=== PATIENT | female | born 1965 | race Caucasian/White ===

== ENCOUNTER → 2019-02-12 08:51 | Outpatient (CLI) | payer OTHER, MEDICAID, SELFPAY ==
[2019-02-12 09:18] LABS: Add Manual Diff / Slide Review NO; Basophils Absolute Auto 0 /uL (0-100); Basophils Percent Auto 0.4 % (0-2); Eosinophils Absolute Auto 200 /uL (0-450); Eosinophils Percent Auto 2.6 % (2-4); Hematocrit 40.1 % (36-46); Hemoglobin 13.4 g/dL (12.0-16.0); Lymphocytes Absolute Auto 2000 /uL (1100-4500); Lymphocytes Percent Auto 33.5 % (25-40); Mean Corpuscular HGB Conc 33.5 % (30-36); Mean Corpuscular Volume 86.6 fL (80-100); Monocytes Absolute Auto 400 /uL (0-900); Monocytes Percent Auto 6.8 % (3-14); Neutrophils Absolute Auto 3300 /uL (1500-7000); Neutrophils Percent Auto 56.7 % (50-75); Platelet Count 272 X10^3/uL (150-400); Red Blood Cell Count 4.63 X10^6/uL (4.0-5.2); White Blood Cell Count 5.9 X10^3/uL (4.5-11.0)
[2019-02-12 09:44] LABS: Alanine Aminotransferase 19 IU/L (9-52); Albumin 4.3 g/dL (3.5-5.0); Albumin Globulin Ratio 1.3 (1.0-2.8); Alkaline Phosphatase 60 U/L (38-126); Aspartate Aminotransferase 23 IU/L (14-36); Bilirubin Total 0.3 mg/dL (0.2-1.3); Blood Urea Nitrogen 18 mg/dL (7-17); Calcium 9.4 mg/dL (8.4-10.2); Carbon Dioxide 25 mmol/L (22-32); Chloride 104 mmol/L (98-107); Cholesterol 244 mg/dL (140-199); Estimated Glomerular Filt Rate 58.2 mL/min (>60); Globulin 3.2 g/dL (1.7-4.1); Glucose 93 mg/dL (70-100); HDL Cholesterol 53 mg/dL (40-60); HEMOLYSIS < 15 (0-50); LDL Cholesterol Calculated 156 mg/dL (<100); Potassium 3.8 mmol/L (3.4-5.1); Sodium 139 mmol/L (137-145); Total Protein 7.5 g/dL (6.3-8.2); Triglycerides 176 mg/dL (35-150)
== END ==
PROVIDERS: PCP Family Medicine; Visit Provider Family Medicine
DX: Z13.1 Encounter for screening for diabetes mellitus (principal); Z00.00 Encounter for general adult medical examination without abnormal findings; Z13.220 Encounter for screening for lipoid disorders
CPT/HCPCS: 36415; 80053; 80061; 85025

== ENCOUNTER → 2019-03-14 09:42 | Outpatient (CLI) | payer OTHER, MEDICAID, SELFPAY ==
[2019-03-16 14:48] LABS: Fecal Immunochemical Test NOT DETECTED (NOT DETECTED)
== END ==
PROVIDERS: PCP Family Medicine; Visit Provider Family Medicine
DX: Z12.11 Encounter for screening for malignant neoplasm of colon (principal)
CPT/HCPCS: 82274

== ENCOUNTER → 2019-05-08 12:30 | Outpatient (CLI) | payer OTHER, MEDICAID, SELFPAY ==
--- NOTE | 2019-05-08 12:33 | DI.RAD.S_ITS ---
PROCEDURE: XR ANKLE RT MIN 3V INDICATIONS: crush injury TECHNIQUE: 3 views of the ankle were acquired. COMPARISON: None. FINDINGS: Bones: No fractures or dislocations. Ankle mortise is normally aligned. No suspicious bony lesions. Chronic appearing ossicle with cortication projects adjacent to lateral malleolus. Plantar and posterior calcaneal spurs. Soft tissues: No tibiotalar joint effusion. Achilles tendon appears normal. IMPRESSION: No acute fracture identified. Chronic appearing ossicle projects adjacent to lateral malleolus probably from remote trauma. If the patient's pain or other symptoms persist, consider further evaluation with MRI Dictated by: Micha Simon M.D. on 05/08/2019 at 16:49 Approved by: Micha Simon M.D. on 05/08/2019 at 16:52
== END ==
PROVIDERS: Family Provider Family Medicine; PCP Family Medicine; Visit Provider Hospitalist
DX: S97.01XA Crushing injury of right ankle, initial encounter (principal); X58.XXXA Exposure to other specified factors, initial encounter
CPT/HCPCS: 73610

== ENCOUNTER → 2021-09-16 09:46 | Outpatient (CLI) | payer OTHER, MEDICAID, SELFPAY ==
[2021-09-16 12:14] LABS: Alanine Aminotransferase 11 IU/L (<35); Albumin 4.1 g/dL (3.5-5.0); Albumin Globulin Ratio 1.4 (1.0-2.8); Alkaline Phosphatase 99 U/L (38-126); Aspartate Aminotransferase 24 IU/L (14-36); Bilirubin Total 0.4 mg/dL (0.2-1.3); Blood Urea Nitrogen 24 mg/dL (7-17); Calcium 9.7 mg/dL (8.4-10.2); Carbon Dioxide 23 mmol/L (22-32); Chloride 106 mmol/L (98-107); Estimated Glomerular Filt Rate 57.8 mL/min (>60); Glucose 95 mg/dL (70-100); HDL Cholesterol 56 mg/dL (40-60); HEMOLYSIS < 15 (0-50); Potassium 4.5 mmol/L (3.4-5.1); Sodium 140 mmol/L (137-145); Total Protein 7.1 g/dL (6.3-8.2); Triglycerides 365 mg/dL (35-150)
[2021-09-16 12:27] LABS: Cholesterol 379 mg/dL (140-199); LDL Cholesterol Calculated 250 mg/dL (<100)
== END ==
PROVIDERS: Family Provider Family Medicine; PCP Family Medicine; Referring Provider Family Medicine; Visit Provider Family Medicine
DX: E66.9 Obesity, unspecified (principal); Z13.220 Encounter for screening for lipoid disorders
CPT/HCPCS: 36415; 80053; 80061

== ENCOUNTER 2022-04-16 09:13 | Observation (INO) | payer OTHER, MEDICAID, SELFPAY ==
[2022-04-16] VITALS (8 sets, daily range): BP systolic 103–136; BP diastolic 60–80; PULSE 67–92; RESP 15–18; TEMP 36.1–37.1; O2SAT 93–99; BMI 25.8
--- NOTE | 2022-04-16 10:20 | ED_ITS ---
HPI - Extremity Injury (Lower) General Chief Complaint: Extremity Injury, Lower Stated Complaint: something stuck in big toe, lt foot Time Seen by Provider: 04/16/22 10:13 Source: patient Mode of arrival: Ambulatory Limitations: no limitations History of Present Illness HPI Narrative: This is a 56-year-old female who states that she stubbed her big toe several days ago. She states was in the carpet but felt very solid. She is unsure what it was. She felt something sort of being or hit the wall. She states there was small puncture and there was bleeding initially. She has had swelling of the toe itself, maybe some mild redness, no numbness or tingling. Painful over the pad of the toe. No ecchymosis. She denies any swelling in the rest of her foot. It is painful to weightbear. She is on medication for cholesterol, denies any other daily medications. No known drug allergies. No regular tobacco, occasional vape. Patient tetanus updated at 2019. Related Data Previous Rx's Medication Instructions Recorded fluticasone propionate 50 1 spray NASAL BID #15.8 ml 07/07/20 mcg/actuation nasal spray,suspension (Flonase Allergy Relief) atorvastatin 20 mg tablet See Rx Instructions .ROUTE 01/25/22 .COMPLEX #30 tab bupropion HCl 150 mg tablet,12 hr 150 mg PO Q12H #60 ea 02/09/22 sustained-release Allergies Allergy/AdvReac Type Severity Reaction Status Date / Time No Known Allergies Allergy Uncoded 08/20/21 09:09 Review of Systems Review of Systems ROS Unobtainable: All systems reviewed & are unremarkable except as noted in HPI and below Patient History Medical History Depression Milk allergy Obesity (BMI 30-39.9) Spontaneous vaginal delivery Surgical History H/O wisdom tooth extraction Family History Father Cancer Social History marital status: number of children: 1 occupational status: employed ([employer] business) Smoking Status: Current some day smoker alcohol intake: current (rarely, once a month ) substance use type: marijuana Smoking Status: Current some day smoker alcohol intake frequency: holidays/special occasions only Substance Use Type: marijuana Exam Narrative Exam Narrative: GENERAL: Alert and oriented x three, female in mild distress. HEENT: Head normocephalic, atraumatic, EOMI, pupils reactive, face symmetric, moist mucous membranes NECK: Supple, full range of motion EXTREMITIES: Normal range of motion, no clubbing. Patient is edema of the great toe, there is a small superficial puncture over the distal pad of the toe, there is no ecchymosis, and unable to palpate any foreign body, there is some swelling throughout the toe itself, very minimal redness in comparison to the other foot, nail is intact with no subungual hematoma, no bony tenderness appreciated on exam. NEUROLOGICAL: Cranial nerves II through XII grossly intact. Moving all extremities SKIN: Warm, dry, no petechiae, no rashes or lesions. Initial Vital Signs Initial Vital Signs: Vital Signs Temperature 97 F L 04/16/22 09:36 Pulse Rate 92 H 04/16/22 09:36 Respiratory Rate 16 04/16/22 09:36 Blood Pressure 136/80 04/16/22 09:36 Pulse Oximetry 99 04/16/22 09:36 Course Orders Ordered: ED Orders 04/16/22 10:24 XR toe LT min 2V Stat 04/16/22 11:25 COVID19 -Nasal RAPID/Pre-Proc Stat Reevaluation(s) Reevaluation #1: Patient x-ray was reviewed. Bedside ultrasound I am able to have likely visualize the object but is quite deep and not easily palpable. Discussed with patient we can try to call her open and remove it it does need to be removed but may be more beneficial with Orthopedic surgery. Time: 11:08 Consultations Consultation #1: Philip Marie, images evaluated. Able to visualize ultrasound but somewhat difficult not palpable on exam. He feels patient would likely benefit from going to OR. Unclear if there is any availability today may be Tuesday. Dr. De Luna called back. Plan for OR today at 1600, NPO. Time: 11:08 Vital Signs Vital signs: Vital Signs - 8 hr 04/16/22 09:36 Temperature 97 F L Pulse Rate 92 H Respiratory Rate 16 Blood Pressure 136/80 Pulse Oximetry 99 MDM - Extremity Injury (Lower) Lab Data Labs: Lab Results 04/16/22 Range/Units 11:25 SARS-CoV-2 (PCR) Negative (Negative) Imaging Data Extremity x-ray #1: Radiologist's Impression: [address] [address] XRay Report Signed Patient: Pamella Godfrey MR#: [id number] : 1965 Acct:[id number] Age/Sex: 56 / F Date of Service: 04/16/22 Loc: ED Accession Number: [id number] ?? Procedure: XR toe LT min 2V Ordering Provider: Emmanuelle Rogers D.O. PROCEDURE:? XR TOE LT MIN 2V ? INDICATIONS:? stubbed toe, small puncture, swelling several days ago ? TECHNIQUE:? 3 views of the 1st toe(s) acquired.? ? COMPARISON:? None. ? FINDINGS:? ? Bones:? No fractures or dislocations.? No suspicious bony lesions.? ? Soft tissues:? There is a 1 6 radiodensity overlying the distal 1st phalanx.? Soft tissue edema is ? IMPRESSION:? Radiodensity overlying distal 1st phalanx most consistent with foreign body. No visualized acute fracture or dislocation. However, if clinical concern and/or pain persist, short interval imaging followup in 7-10 days is recommended, as occult injury cannot be definitively excluded. ? ? Dictated by: Veronica Rivera M.D. on 04/16/2022 at 10:37 ? ? Approved by: Veronica Rivera M.D. on 04/16/2022 at 10:38?? [facility] Narrative Medical decision making narrative: This is a 56-year-old female who had an injury to her toe. She has a small p uncture wound, no significant cellulitis but some very mild erythema no palpable foreign body on exam at the area of injury. Patient does have some swelling. X-ray was obtained to rule out fracture or metallic foreign body. The patient appears to have a metallic foreign body in her foot. Patient's tetanus is up-to-date as of 2019. I am unable to palpate it. With visualization with ultrasound it appears quite deep in the pad of the toe discussed with Orthopedic surgery we do not have a portable C-arm available in the emergency department so asked to keep people NPO, COVID swab performed IV placed for OR today for removal of foreign body by Dr. De Luna. Discharge Plan Departure Patient Disposition: Admitted to Surgery Clinical Impression: Puncture wound of toe, Foreign body of toe Instructions: DI for Puncture Wound Prescriptions: No Action fluticasone propionate [Flonase Allergy Relief] 50 mcg/actuation spray,suspension 1 spray NASAL BID Qty: 15.8 2RF Rx Instructions: Due for appointment atorvastatin 20 mg tablet See Rx Instructions .ROUTE .COMPLEX Qty: 30 7RF Dose Instruction: Take one tablet by mouth daily. Rx Instructions: Take one tablet by mouth daily. bupropion HCl 150 mg tablet sustained-release 12 hr 150 mg PO Q12H Qty: 60 3RF Referrals: Tosin Carreon DO [Primary Care Provider] -
--- NOTE | 2022-04-16 10:24 | DI.RAD.S_ITS ---
PROCEDURE: XR TOE LT MIN 2V INDICATIONS: stubbed toe, small puncture, swelling several days ago TECHNIQUE: 3 views of the 1st toe(s) acquired. COMPARISON: None. FINDINGS: Bones: No fractures or dislocations. No suspicious bony lesions. Soft tissues: There is a 1 6 radiodensity overlying the distal 1st phalanx. Soft tissue edema is IMPRESSION: Radiodensity overlying distal 1st phalanx most consistent with foreign body. No visualized acute fracture or dislocation. However, if clinical concern and/or pain persist, short interval imaging followup in 7-10 days is recommended, as occult injury cannot be definitively excluded. Dictated by: Veronica Rivera M.D. on 04/16/2022 at 10:37 Approved by: Veronica Rivera M.D. on 04/16/2022 at 10:38
--- NOTE | 2022-04-16 11:10 | PC.NURSE ---
Provider Dr. Rogers asked me to get a hold of the provider dairy nutritionist for orthopedics at 11:08. I called Dr. Philip De Luna MD at 11:10 and connected him with Dr. Rogers.
--- NOTE | 2022-04-16 11:47 | PM.HP.1 ---
History of Present Illness History of Present Illness Date Patient Seen: 04/16/22 Time Patient Seen: 17:00 Date of Onset of Symptoms: 04/14/22 Chief complaint: something stuck in big toe, lt foot Narrative: Ms. Godfrey is a 56 yo F with 2 days history of feeling something in her left big toe. She states she thinks she was poked with a sewing needle. X-ray shows a foreigh body in the shape of a needle in her left big toe's soft tissue. The needle cannot be palpated on the skin. After discussing risks and benefits of treatment options, patient elected to proceed with surgical removal of her foreign body in her toe in the OR. Patient History Medical History Depression Milk allergy Obesity (BMI 30-39.9) Spontaneous vaginal delivery Surgical History H/O wisdom tooth extraction Family & Social History Family History Father Cancer Safety & Behavioral: Feels Safe in Current Yes Environment Been Physically Hurt or No Threatened By a Person Tobacco & Substance use: Smoking Status Current some day smoker alcohol intake current alcohol intake frequency holiday/special occasion Substance Use Type marijuana Meds Home Medications and Allergies Home Medications Medication Instructions Recorded Confirmed Type fluticasone propionate 50 1 spray NASAL BID #15.8 ml 07/07/20 04/16/22 Rx mcg/actuation nasal spray,suspension (Flonase Allergy Relief) atorvastatin 20 mg tablet See Rx Instructions .ROUTE 01/25/22 04/16/22 Rx .COMPLEX #30 tab bupropion HCl 150 mg tablet,12 hr 150 mg PO Q12H #60 ea 02/09/22 04/16/22 Rx sustained-release Allergies Allergy/AdvReac Type Severity Reaction Status Date / Time No Known Allergies Allergy Uncoded 08/20/21 09:09 Exam Vital Signs (past 8 hours): - 04/16/22 09:36 Temperature 97 F L Pulse Rate 92 H Respiratory Rate 16 Blood Pressure 136/80 Pulse Oximetry 99 Oxygen Delivery Method Room Air Extrem Other: Small puncture wound on the front plantar aspect of left big toe, no erythema, no drainage. No palpable foreign body. Assessment & Plan Assessment & Plan narrative: 56 yo F with sewing needle stuck in her left big toes soft tissue. The needle is deeply embedded and cannot be palpated and easily retrived in the ED. Informed consent was obtain and patient is taken to the ER for emergent surgical removal of her foreign body in her left big toe. Time Spent With Patient Critical Care time: I spent a total of [] minutes of critical care time on this patient's care today; this time is exclusive of procedural time.
[2022-04-16 11:52] LABS: COVID19 -Nasal RAPID Negative (Negative)
[2022-04-16] MEDS: LACTATED RINGERS 1,000 ML 42 ML IV (16:15)
--- NOTE | 2022-04-16 16:38 | P.OP_ITS ---
Operative Date/Time/Diagnoses Date of procedure: 04/16/22 Time of procedure: 17:00 Pre-op diagnosis: 1. left big toe penetrating wound with retained hardware Post-op diagnosis: same Procedure & Clinicians Procedure: 1. Left big toe foreign body removal through open incision 2. Irrigation and debridement of skin and subcutaneous tissue Same procedure as scheduled: Yes Indications: Ms. Iniguez is a 56 yo F with stepped on a sharp object 4 days ago and has been walking around with pain. She presented to ED today for persisting pain. X-ray shows a needle shaped foreign body inside of her left big toe in soft tissue. After determining difficulty for attempt removal in ED, orthopedic service was consulted. Informed consent was obtained for emergent surgical removal of foreign body through open incision. Surgeon: Philip De Luna Electrical Test Engineer: Wilda Melissa Click Yes if Unassisted: No Anesthesia Type: General Operative Notes Closure Type: primary Specimen(s): none sent Applied: catheter Estimated Blood Loss (mL): 0 Blood products transfused: none Procedure in detail: After informed consent was obtained, patient was taken to the operating room. Time out was performed. Patient's left foot was then prepped and draped in a sterile fashion. 0.25% Marcaine was used to perform digital block to patient's left toe. IV sedation was also administered. The open wound on patient's left big toe was extended using a 11 blade scalpel. Under C-arm guidance a fine tip mosquito hemostat was used to grasp the tip of the foreign body and retrieving the foreign body through the entry wound. After the foreign body was successfully removed, the wound was irrigated with sterile normal saline. 4-0 nylon suture was used to close the extended incision on the left toe. A Band-Aid was then placed over the left big toe. Patient will be discharged home and allowed to weightbear as tolerated to her left foot. Complications: none Post-operative Condition: stable Disposition: PACU Plan for aftercare: Discharge to home
[2022-04-16] MEDS: BUPIVACAINE 0.25% (PF) VIAL 30 ML INJ (17:06)
--- NOTE | 2022-04-16 17:10 | SUR.OPER ---
Supine on padded stretcher, head on pillow, arms secured on padded and tucked at sides, legs uncrossed, safety belt at thigh, tape over blanket over lower legs.
== END 2022-04-16 18:13 | disposition home or self-care (01) ==
LOC: ED 14:28 → AC 16:07
PROVIDERS: Admitting Provider Orthopaedic Surgery Orthopaedic Surgery of the Spine; Emergency Provider Emergency Medicine; Family Provider Family Medicine; PCP Family Medicine; Referring Provider Emergency Medicine; Visit Provider Orthopaedic Surgery Orthopaedic Surgery of the Spine
PROC: (CPT 28192; principal; 2022-04-16 16:45)
DX: S91.142A Puncture wound with foreign body of left great toe without damage to nail, initial encounter (principal); F17.210 Nicotine dependence, cigarettes, uncomplicated; W22.8XXA Striking against or struck by other objects, initial encounter; Z20.822 Contact with and (suspected) exposure to COVID-19
CPT/HCPCS: 28192; 36415; 73660; 87635; 99283; C9803; G0378; J2405; J2704; J3010

== ENCOUNTER → 2022-06-08 16:08 | Outpatient (CLI) | payer OTHER, MEDICAID, SELFPAY ==
--- NOTE | 2022-06-08 16:12 | DI.MG.S_ITS ---
BILATERAL DIGITAL SCREENING MAMMOGRAM 3D/2D WITH CAD: 06/08/2022 CLINICAL: Routine screening. Baseline exam Family history of breast cancer. No prior exams were available for comparison. The tissue of both breasts is heterogeneously dense. This may lower the sensitivity of mammography. Current study was also evaluated with a Computer Aided Detection (CAD) system. No significant masses, calcifications, or other findings are seen in either breast. IMPRESSION: NEGATIVE There is no mammographic evidence of malignancy. A 1 year screening mammogram is recommended. Based on the Tyrer Cuzick model (a risk assessment model) the patient's lifetime risk is 11.8% and her 10 year risk is 3.6%. According to the ACR, ACS, and NCCN guidelines, an annual breast MRI exam along with mammogram is recommended if the patient's lifetime risk is 20% or greater. This exam was interpreted at Station ID: [id number]. NOTE: For mammograms, a report in lay terms will be sent to the patient. Approximately 15% of breast malignancies will not be visualized mammographically. In the management of a palpable breast mass, a negative mammogram must not discourage biopsy of a clinically suspicious lesion. Electronically Signed By: Rodrigo rubio/andree:06/09/2022 14:37:44 letter sent: Normal Exam ACR BI-RADS Category 1: Negative [id number]
== END ==
PROVIDERS: Family Provider Family Medicine; PCP Family Medicine; Referring Provider Family Medicine; Visit Provider Family Medicine
DX: Z12.31 Encounter for screening mammogram for malignant neoplasm of breast (principal); Z80.3 Family history of malignant neoplasm of breast
CPT/HCPCS: 77063; 77067

== ENCOUNTER → 2022-06-17 11:55 | Outpatient (CLI) | payer OTHER, MEDICAID, SELFPAY ==
[2022-06-17 13:44] LABS: Alanine Aminotransferase 11 IU/L (<35); Albumin 4.2 g/dL (3.5-5.0); Albumin Globulin Ratio 1.5 (1.0-2.8); Alkaline Phosphatase 72 U/L (38-126); Aspartate Aminotransferase 27 IU/L (14-36); BUN Creatinine Ratio 15.9 (6-22); Bilirubin Total 0.6 mg/dL (0.2-1.3); Blood Urea Nitrogen 17 mg/dL (7-17); Calcium 9.1 mg/dL (8.4-10.2); Carbon Dioxide 24 mmol/L (22-32); Chloride 106 mmol/L (98-107); Cholesterol 165 mg/dL (140-199); Estimated Glomerular Filt Rate > 60 mL/min (>60); Globulin 2.8 g/dL (1.7-4.1); Glucose 92 mg/dL (70-100); HDL Cholesterol 65 mg/dL (40-60); HEMOLYSIS < 15 (0-50); LDL Cholesterol Calculated 81 mg/dL (<100); Potassium 3.7 mmol/L (3.4-5.1); Sodium 138 mmol/L (137-145); Triglycerides 93 mg/dL (35-150)
== END ==
PROVIDERS: Family Provider Family Medicine; PCP Family Medicine; Referring Provider Family Medicine; Visit Provider Family Medicine
DX: E66.9 Obesity, unspecified (principal); E78.5 Hyperlipidemia, unspecified
CPT/HCPCS: 36415; 80053; 80061

== ENCOUNTER 2023-08-11 13:49 | Emergency (ER) | payer OTHER, MEDICAID, SELFPAY ==
[2023-08-11 13:55] VITALS: BP 147/94; PULSE 99; RESP 18; TEMP 37.2; O2SAT 97
--- NOTE | 2023-08-11 13:59 | DI.RAD.S_ITS ---
PROCEDURE: XR KNEE RT 3V INDICATIONS: felt a snap/pop TECHNIQUE: 3 views of the knee were acquired. COMPARISON: None. FINDINGS: Bones: No fractures or dislocations. No suspicious bony lesions. Soft tissues: Small joint effusion. No suspicious soft tissue calcifications. IMPRESSION: No displaced fracture. Dictated by: Edgar Parrish M.D. on 08/11/2023 at 15:19 Approved by: Edgar Parrish M.D. on 08/11/2023 at 15:20
[2023-08-11 14:08] VITALS: PULSE 84
--- NOTE | 2023-08-11 14:16 | PC.NURSE ---
Pt states she was walking down the side walk at 1300 today and she heard a pop/snap in R-knee. No Pain at this time. Xrays taken, awaiting results.
[2023-08-11 14:19] VITALS: BP 128/89; PULSE 99; RESP 18; O2SAT 95
--- NOTE | 2023-08-11 15:16 | ED.LOWEXIN ---
HPI - Extremity Injury (Lower) <Ling Chung PA-C - Last Filed: 08/11/23 18:07> General Chief Complaint: Extremity Injury, Lower Stated Complaint: RT knee popped or snapped Time Seen by Provider: 08/11/23 14:36 Source: patient Mode of arrival: Ambulatory History of Present Illness HPI Narrative: Patient is a 57-year-old female who was walking along the sidewalk when she had a sudden sharp pain in her right knee. The pain went away but then recurred a 2nd time when she was again walking. Did not fall or twist her knee. She has been working on her knees quite a bit while painting a house. She has no history of knee injury. She denies any numbness or tingling in her foot or loss of strength. She has no pain right now while in the emergency room. She is not taken any medications or tried any therapy. Related Data Previous Rx's Medication Instructions Recorded atorvastatin 20 mg tablet 20 mg PO .COMPLEX #90 tabs 09/03/22 bupropion HCl 150 mg tablet,12 hr 150 mg PO BID #180 tabs 09/03/22 sustained-release albuterol sulfate 90 mcg/actuation 2 puff inhalation Q6H PRN 10/28/22 aerosol inhaler shortness of breath or wheezing #8.5 grams fluticasone propionate 50 See Rx Instructions .Route 12/09/22 mcg/actuation nasal .COMPLEX #16 grams spray,suspension Allergies Allergy/AdvReac Type Severity Reaction Status Date / Time milk Allergy Verified 10/05/22 11:56 Review of Systems <Ling Chung PA-C - Last Filed: 08/11/23 18:07> Review of Systems ROS Unobtainable: All systems reviewed & are unremarkable except as noted in HPI and below Patient History <Ling Chung PA-C - Last Filed: 08/11/23 18:07> Medical History Depression Hyperlipidemia Milk allergy Obesity (BMI 30-39.9) Spontaneous vaginal delivery Surgical History Foreign body of toe H/O wisdom tooth extraction Family History Father Cancer Social History marital status: number of children: 1 household members: family occupational status: employed ([email or web address]) Smoking Status: Current every day smoker alcohol intake: current substance use type: marijuana Smoking Status: Current every day smoker tobacco type: vaping alcohol intake frequency: a few times a week Substance Use Type: marijuana Exam <Ling Chung PA-C - Last Filed: 08/11/23 18:07> Narrative Exam Narrative: GENERAL: 57 year old patient appears stated age. Well-developed patient, in no distress. NEURO: AOx3. HEAD: Atraumatic. Normocephalic. EYES: Pupils equal round and reactive. Extraocular motions intact. No scleral icterus. No injection or drainage. ENT: Nose without bleeding or purulent drainage. Airway patent. RESPIRATORY: No distress EXTREMITIES: Trace edema of right knee. No visual deformity. Patella appropriately aligned. No focal point of tenderness. Distal pulses intact. SKIN: No rash or erythema of visible areas Initial Vital Signs Initial Vital Signs: Vital Signs Temperature 98.9 F 08/11/23 13:55 Pulse Rate 99 H 08/11/23 13:55 Respiratory Rate 18 08/11/23 13:55 Blood Pressure 147/94 H 08/11/23 13:55 Pulse Oximetry 97 08/11/23 13:55 Oxygen Delivery Method Room Air 08/11/23 13:55 <Chris Cole MD - Last Filed: 08/26/23 08:39> Initial Vital Signs Initial Vital Signs: Vital Signs Temperature 98.9 F 08/11/23 13:55 Pulse Rate 99 H 08/11/23 13:55 Respiratory Rate 18 08/11/23 13:55 Blood Pressure 147/94 H 08/11/23 13:55 Pulse Oximetry 97 08/11/23 13:55 Oxygen Delivery Method Room Air 08/11/23 13:55 Course <Ling Chung PA-C - Last Filed: 08/11/23 18:07> Orders Ordered: ED Orders 08/11/23 13:59 XR knee RT 3V Stat Vital Signs Vital signs: Vital Signs - 8 hr 08/11/23 13:55 08/11/23 14:08 08/11/23 14:19 Temperature 98.9 F Pulse Rate 99 H 99 H Pulse Rate [Right Posterior Tibial] 84 Respiratory Rate 18 18 Blood Pressure 147/94 H 128/89 Pulse Oximetry 97 95 Oxygen Delivery Method Room Air 08/11/23 15:17 Temperature Pulse Rate 89 Pulse Rate [Right Posterior Tibial] Respiratory Rate 18 Blood Pressure Pulse Oximetry 98 Oxygen Delivery Method Room Air <Chris Cole MD - Last Filed: 08/26/23 08:39> Orders Ordered: ED Orders 08/11/23 13:59 XR knee RT 3V Stat Vital Signs Vital signs: Vital Signs - 8 hr 08/11/23 13:55 08/11/23 14:08 08/11/23 14:19 Temperature 98.9 F Pulse Rate 99 H 99 H Pulse Rate [Right Posterior Tibial] 84 Respiratory Rate 18 18 Blood Pressure 147/94 H 128/89 Pulse Oximetry 97 95 Oxygen Delivery Method Room Air 08/11/23 15:17 Temperature Pulse Rate 89 Pulse Rate [Right Posterior Tibial] Respiratory Rate 18 Blood Pressure Pulse Oximetry 98 Oxygen Delivery Method Room Air MDM - Extremity Injury (Lower) <Ling Chung PA-C - Last Filed: 08/11/23 18:07> Imaging Data Extremity x-ray #1: Radiologist's Impression: PROCEDURE:? XR KNEE RT 3V ? INDICATIONS:? felt a snap/pop ? TECHNIQUE:? 3 views of the knee were acquired.? ? COMPARISON:? None. ? FINDINGS:? ? Bones:? No fractures or dislocations.? No suspicious bony lesions.? ? Soft tissues:? Small joint effusion.? No suspicious soft tissue calcifications.? ? ? IMPRESSION:? No displaced fracture. ? ? Dictated by: Edgar Parrish M.D. on 08/11/2023 at 15:19 ? ? Approved by: Edgar Parrish M.D. on 08/11/2023 at 15:20 ? MDM Narrative Medical decision making narrative: Multiple etiologies for patient's symptoms considered including, but not limited to: Knee sprain/strain, fracture, patellar dislocation. Based on history and exam doubt acute bony fracture. Suspect tear of soft tissue. X-ray without fracture Advised rice, ibuprofen and conservative care. If not improving after 1-2 weeks, can self refer to orthopedics for re-evaluation. Offered Jg wrap, patient prefers to go to pharmacy and buy an [id number] brace. Patient's symptoms improved over duration of stay with above-stated therapies. Findings and discharge diagnosis discussed with patient/family followed by verbalization of understanding Return precautions discussed with patient/family whom verbalize understanding of diagnosis and plan Discharge Plan Departure Patient Disposition: Home Clinical Impression: Right knee injury Instructions: DI for Knee Pain Activity Restrictions/Additional Instructions: *You have been diagnosed with a musculoskeletal injury or fracture. You are advised to use R: rest. take it easy and listen to your body! I: ice. apply ice for 20 minutes every 2 hours while awake. Do not put ice directly on the skin. C: compression. Gentle compression with jg wrap or brace will decrease pain and swelling. E: elevation. Keep extremity elevated above the heart whenever possible. Use tylenol or ibuprofen for inflammation and pain. It is generally safe to take up to 3-4grams of tylenol in 24 hours, or 2400mg of ibuprofen in 24 hours. If you have questions about dosing or whether these medications are safe for you, please ask a healthcare provider. *What to do: *Please continue to take your regular medications as directed. [ ] New medication prescriptions sent to your pharmacy: [ ] [ ] New medication written as a paper prescription [x] No new medications given *Please follow up with your primary care provider in 2-3 days, call for an appointment. Let them know you were seen in the Emergency Department and that we ask that you be seen in follow up. We will electronically transmit a record of today's note if your PCP is in our system *If you do not have a primary care provider please contact the [facility] Resource line at [phone]. They will ask some questions about your medical history and help get you set up with a doctor in the community. *Return to Emergency Department if you should have any new, worsening or concerning symptoms, such as [fever greater than 101 F, shaking chills, worsening pain, persistent vomiting or other concerning symptoms]. Prescriptions: No Action atorvastatin 20 mg tablet 20 mg PO .COMPLEX Qty: 90 3RF Rx Instructions: 20 mg orally; bupropion HCl 150 mg tablet sustained-release 12 hr 150 mg PO BID Qty: 180 3RF albuterol sulfate 90 mcg/actuation HFA aerosol inhaler 2 puff inhalation Q6H PRN (Reason: shortness of breath or wheezing) Qty: 8.5 1RF fluticasone propionate 50 mcg/actuation spray,suspension See Rx Instructions .ROUTE .COMPLEX Qty: 16 5RF Dose Instruction: ADMINISTER ONE SPRAY INTO EACH NOSTRIL TWO TIMES DAILY Rx Instructions: ADMINISTER ONE SPRAY INTO EACH NOSTRIL TWO TIMES DAILY Referrals: [facility] [Provider Group] Tosin Carreon DO [Primary Care Provider] - Stand Alone Forms: Patient Portal/API ED Sign-out <Chris Cole MD - Last Filed: 08/26/23 08:39> Cosign ED Attending Cosignature Attestation: I was immediately available in the department for consultation. ?This documentation has been reviewed and I agree with assessment and plan. Supervised by Chris Cole MD
[2023-08-11 15:17] VITALS: PULSE 89; RESP 18; O2SAT 98
== END 2023-08-11 15:18 | disposition home or self-care (01) ==
PROVIDERS: Emergency Provider Physician Assistant; Family Provider Family Medicine; PCP Family Medicine
DX: S89.91XA Unspecified injury of right lower leg, initial encounter (principal); X58.XXXA Exposure to other specified factors, initial encounter
CPT/HCPCS: 73562; 99281; 99283

== ENCOUNTER 2024-10-20 09:23 | Emergency (ER) | payer OTHER, MEDICAID, SELFPAY ==
[2024-10-20 09:30] VITALS: BP 121/82; PULSE 83; RESP 14; TEMP 36.9; O2SAT 96; BMI 37.4
--- NOTE | 2024-10-20 09:49 | DI.RAD.S_ITS ---
PROCEDURE: XR CHEST 2V INDICATIONS: cough and short of breath. family member in house has pneumonia. TECHNIQUE: 2 views of the chest were acquired. COMPARISON: None. FINDINGS: Surgical changes and devices: None. Lungs and pleura: An incomplete inspiratory result is noted, causing a crowded appearance to the lung markings. No focal infiltrates are seen. No pneumothorax or significant pleural effusions are seen. Mediastinum: The cardiac contours are within normal limits. The aorta demonstrates calcification and tortuosity. Bones and chest wall: No suspicious bony abnormalities. Age-appropriate bony degenerative changes are seen. Accentuated thoracic kyphosis is seen. Soft tissues appear unremarkable. IMPRESSION: No focal infiltrates are seen. Low lung volumes noted. Dictated by: Luis Armando Arredondo M.D. on 10/20/2024 at 9:09 Approved by: Luis Armando Arredondo M.D. on 10/20/2024 at 9:10
[2024-10-20 10:03] LABS: Strep Grp A by PCR Rapid Negative (Negative)
--- NOTE | 2024-10-20 10:31 | ED.URI ---
HPI - URI/Sore Throat General Chief Complaint: Upper Respiratory Symptoms Stated Complaint: tonsils swollen and left eye goopy Time Seen by Provider: 10/20/24 09:29 Source: patient Mode of arrival: Ambulatory History of Present Illness HPI Narrative: 59-year-old female with 1 week duration of cough and sore throat, some shortness of breath, left eye irritation with scant discharge. She has currently not taking any antibiotics. She has history of inhaler from an old COVID illness, she has been using the inhaler, she feels that there is less shortness of breath sensation with use of inhaler. Denies chest pain. She denies abdominal pain, nausea vomiting diarrhea. She does not feel feverish. She has no pain with urination or frequency of urination. No flank pain or back pain. She denies headache neck pain photophobia. No weakness or numbness to face arm or leg. Related Data Previous Rx's Medication Instructions Recorded atorvastatin 20 mg tablet 20 mg PO .COMPLEX #90 tabs 09/03/22 bupropion HCl 150 mg tablet,12 hr 150 mg PO BID #180 tabs 09/03/22 sustained-release albuterol sulfate 90 mcg/actuation 2 puff inhalation Q6H PRN 10/28/22 aerosol inhaler shortness of breath or wheezing #8.5 grams fluticasone propionate 50 See Rx Instructions .Route 12/09/22 mcg/actuation nasal .COMPLEX #16 grams spray,suspension amoxicillin 875 mg tablet 875 mg PO BID dental infection 10 10/20/24 days #20 tabs Allergies Allergy/AdvReac Type Severity Reaction Status Date / Time milk Allergy Verified 10/05/22 11:56 Review of Systems Review of Systems Narrative: See HPI Patient History Medical History Depression Hyperlipidemia Milk allergy Obesity (BMI 30-39.9) Spontaneous vaginal delivery Surgical History Foreign body of toe H/O wisdom tooth extraction Family History Father Cancer Social History marital status: number of children: 1 household members: family occupational status: employed ([employer]) Smoking Status: Current every day smoker alcohol intake: current substance use type: marijuana Smoking Status: Current every day smoker tobacco type: vaping alcohol intake frequency: a few times a month Alcohol type: beer Substance Use Type: marijuana Exam Narrative Exam Narrative: GENERAL: Well-developed patient, in mild distress. HEAD: Atraumatic. Normocephalic. EYES: Pupils equal round and reactive. Extraocular motions intact. No scleral icterus. No injection or drainage. ENT: Nose without bleeding, purulent drainage. Bilateral tonsillar hypertrophy, right-sided tonsillar exudate, but tonsils symmetrical in size, no uvular or palatal edema, normal phonation, handles secretions well, moves neck well. NECK: Trachea midline. Non tender CARDIOVASCULAR: Regular rate and rhythm without murmurs, gallops, or rubs. RESPIRATORY: Clear to auscultation. Breath sounds equal bilaterally. No wheezes, rales, or rhonchi. GASTROINTESTINAL: Abdomen soft, non-tender, nondistended. EXTREMITIES: No edema or joint tenderness. BACK: Nontender without deformity or crepitance. No flank tenderness. NEURO: AOx3. Motor functions grossly nonfocal SKIN: No rash or erythema of visible areas Initial Vital Signs Initial Vital Signs: Vital Signs Temperature 98.5 F 10/20/24 09:30 Pulse Rate 83 10/20/24 09:30 Respiratory Rate 14 10/20/24 09:30 Blood Pressure 121/82 10/20/24 09:30 Pulse Oximetry 96 10/20/24 09:30 Oxygen Delivery Method Room Air 10/20/24 09:30 Course Orders Ordered: Discontinued Medications Amoxicillin (Amoxicillin 250 Mg Capsule) 1,000 mg PO NOW ONE Stop: 10/20/24 11:01 Last Admin: 10/20/24 11:18 Dose: 1,000 mg Documented By: IRAIDA Erythromycin (Erythromycin Ophth 1 Gm Oint) 1 applic EYE-LEFT NOW ONE Stop: 10/20/24 10:48 Last Admin: 10/20/24 11:18 Dose: 1 applic Documented By: IRAIDA Vital Signs Vital signs: Vital Signs - 8 hr 10/20/24 09:30 Temperature 98.5 F Pulse Rate 83 Respiratory Rate 14 Blood Pressure 121/82 Pulse Oximetry 96 Oxygen Delivery Method Room Air MDM - URI/Sore Throat Lab Data Attestation: I reviewed the patient's lab results. Lab results narrative: Strep screen negative. COVID/RSV/influenza negative. Labs: Lab Results 10/20/24 10/20/24 Range/Units 09:40 09:48 SARS-CoV-2 (PCR) Negative (Negative) Influenza A (RT-PCR) Flu a negative (NEGATIVE) Influenza B (RT-PCR) Flu b negative (NEGATIVE) Group A Strep (PCR) Negative (Negative) Imaging Data Chest x-ray: Radiologist's Impression: [place] [address] XRay Report Signed Patient: Pamella Godfrey MR#: [id number] : 1965 Acct:[id number] Age/Sex: 59 / F Date of Service: 10/20/24 Loc: ED Accession Number: [id number] Procedure: XR chest 2V Ordering Provider: Ponce Baca MD PROCEDURE: XR CHEST 2V INDICATIONS: cough and short of breath. family member in house has pneumonia. TECHNIQUE: 2 views of the chest were acquired. COMPARISON: None. FINDINGS: Surgical changes and devices: None. Lungs and pleura: An incomplete inspiratory result is noted, causing a crowded appearance to the lung markings. No focal infiltrates are seen. No pneumothorax or significant pleural effusions are seen. Mediastinum: The cardiac contours are within normal limits. The aorta demonstrates calcification and tortuosity. Bones and chest wall: No suspicious bony abnormalities. Age-appropriate bony degenerative changes are seen. Accentuated thoracic kyphosis is seen. Soft tissues appear unremarkable. IMPRESSION: No focal infiltrates are seen. Low lung volumes noted. Dictated by: Luis Armando Arredondo M.D. on 10/20/2024 at 9:09 Approved by: Luis Armando Arredondo M.D. on 10/20/2024 at 9:10 MDM Narrative Medical decision making narrative: 59-year-old female with one-week cough, some shortness of breath that is responsive to her own inhaler at home, no oxygen requirement, afebrile, lungs clear, normal oxygenation on room air, some exudate on the right tonsil which is enlarged but symmetrical with of the left. Chest x-ray, COVID/flu screen, rapid strep screen, sent from triage Chest x-ray negative, see radiology report Strep screen negative, COVID/flu/RSV swab negative. Unilateral exudative tonsillitis on examination, possibly viral but we will treat with oral amoxicillin, backup throat culture pending at this time. First dose oral Amox now, prescription sent for further course oral abx to her pharmacy. Topical erythromycin to left eye conjunctivitis, tube dispensed from ED. Discussed symptomatic treatment with Tylenol/Motrin [id number]. Return precautions if not improving in the next few days. Discharged home Discharge Plan Departure Patient Disposition: Home Clinical Impression: Exudative tonsillitis, Acute upper respiratory infection, Conjunctivitis Activity Restrictions/Additional Instructions: Recent one-week duration of cough with some shortness of breath responsive to the your own albuterol inhaler use. No oxygen requirement, no fever, lung exam reassuring. Chest x-ray was done, negative per Radiology review and report. Strep screen was negative. COVID/flu/RSV viral screen was negative. On examination you do have some conjunctivitis like changes to the left eye, topical erythromycin to use, 1 application 3 times daily for the next few days. Consider oral antibiotics for right-sided exudative tonsillitis, can be viral but this is usually both sides when it is viral, trial of antibiotics for now. Amoxicillin 1st dose now, prescription sent to your pharmacy. Recheck symptoms with your regular doctor in the next few days if not improving. Return earlier to this/nearest emergency department for any change worsening symptoms or any concerns prior Prescriptions: New amoxicillin 875 mg tablet 875 mg PO BID 10 Days Qty: 20 0RF No Action atorvastatin 20 mg tablet 20 mg PO .COMPLEX Qty: 90 3RF Rx Instructions: 20 mg orally; bupropion HCl 150 mg tablet sustained-release 12 hr 150 mg PO BID Qty: 180 3RF albuterol sulfate 90 mcg/actuation HFA aerosol inhaler 2 puff inhalation Q6H PRN (Reason: shortness of breath or wheezing) Qty: 8.5 1RF fluticasone propionate 50 mcg/actuation spray,suspension See Rx Instructions .ROUTE .COMPLEX Qty: 16 5RF Dose Instruction: ADMINISTER ONE SPRAY INTO EACH NOSTRIL TWO TIMES DAILY Rx Instructions: ADMINISTER ONE SPRAY INTO EACH NOSTRIL TWO TIMES DAILY Referrals: Tosin Careron DO [Primary Care Provider] - Stand Alone Forms: Patient Portal/API/Survey
[2024-10-20 10:35] LABS: Influenza A - CEPHEID Flu A NEGATIVE (NEGATIVE); Influenza B - CEPHEID Flu B NEGATIVE (NEGATIVE)
[2024-10-20 10:36] LABS: COVID-19 CEPHEID 4-PLEX PCR Negative (Negative)
[2024-10-20] MEDS: AMOXICILLIN 250 MG CAPSULE 1000 MG PO (11:18)
[2024-10-20] MEDS: ERYTHROMYCIN OPHTH 1 GM OINT 1 APPLIC EYE-LEFT (11:18)
[2024-10-20 11:23] VITALS: BP 131/75; PULSE 79; RESP 20; TEMP 36.9; O2SAT 97
== END 2024-10-20 11:22 | disposition home or self-care (01) ==
PROVIDERS: Emergency Provider Emergency Medicine; Family Provider Family Medicine; PCP Family Medicine
DX: J03.90 Acute tonsillitis, unspecified (principal); J06.9 Acute upper respiratory infection, unspecified; H10.9 Unspecified conjunctivitis; F17.200 Nicotine dependence, unspecified, uncomplicated
CPT/HCPCS: 71046; 87070; 87147; 87635; 87651; 99283; 99284